=== PATIENT | male | born 1995 | race Caucasian/White ===

== ENCOUNTER 2019-02-08 09:41 | Emergency (ER) | payer OTHER ==
[~2019-02-08] VITALS: Ht 180.3 cm; Wt 77.3 kg
[2019-02-08] MEDS ORDERED: IBUP-1022 PO (09:49)
--- NOTE | 2019-02-08 10:23 | REP ---
CT Head without contrast HISTORY: Fall COMPARISON: None There is no intraparenchymal hemorrhage, acute infarct, mass or midline shift. The ventricular system is normal in appearance. There is no extra cerebral collection. There is no fracture. The visualized sinuses are clear. IMPRESSION: There is no intracranial lesion. Electronically Signed by Rolando Dee MD 02/08/2019 10:15 A
[2019-02-08 10:40] VITALS: BP 124/64
== END 2019-02-08 10:40 | disposition home or self-care (01) ==
LOC: M ED 09:41
DX: S09.90XA Unspecified injury of head, initial encounter (principal); W06.XXXA Fall from bed, initial encounter; Y92.013 Bedroom of single-family (private) house as the place of occurrence of the external cause